=== PATIENT | male | born 1990 | race Caucasian/White ===

== ENCOUNTER 2019-11-15 13:22 | Inpatient (IN) | payer MEDICAID, OTHER ==
[~2019-11-15] VITALS: Ht 172.7 cm; Wt 97.3 kg
[~2019-11-15 13:22] MED LIST: BENZ1TAB70 PO; DIVA-78 PO; HALOD100I IM; PREDNISONE; RISP1TAB27 PO
[2019-11-15] MEDS ORDERED: ACETAMINOPHEN 325 MG TABLET PO ONE (17:00)
[2019-11-15 17:09] LABS: AMPHET/METH SCREEN,URINE NEGATIVE (NEGATIVE); BARBITURATE SCREEN, URINE NEGATIVE (NEGATIVE); BENZODIAZEPINES SCREEN,URINE NEGATIVE (NEGATIVE); CANNABINOID SCREEN,URINE NEGATIVE (NEGATIVE); COCAINE SCREEN,URINE NEGATIVE (NEGATIVE); METHADONE SCREEN, URINE NEGATIVE (NEGATIVE); OPIATE SCREEN,URINE NEGATIVE (NEGATIVE)
[2019-11-15 17:11] LABS: PHENCYCLIDINE SCREEN,URINE NEGATIVE (NEGATIVE)
[2019-11-15 17:48] LABS: BASOPHILS % (AUTO) 0.6 % (0.0-2.0); EOSINOPHILS % (AUTO) 1.8 % (1.0-6.0); HEMATOCRIT 45.2 % (41-53); HEMOGLOBIN 14.8 g/dL (13.5-17.5); LYMPHOCYTES # (AUTO) 2.3 K/uL (1.0-4.8); LYMPHOCYTES % (AUTO) 30.1 % (22.0-44.0); MEAN CORPUSCULAR HEMOGLOBIN 30.9 pg (26.0-34.0); MEAN CORPUSCULAR HGB CONC 32.8 G/dL (31.0-37.0); MEAN CORPUSCULAR VOLUME 94 fL (80-100); MONOCYTES # (AUTO) 0.6 K/uL (0.1-1.0); MONOCYTES % (AUTO) 8.6 % (2.0-9.0); NEUTROPHILS # (AUTO) 4.4 K/uL (1.8-7.7); NEUTROPHILS % (AUTO) 58.9 % (40.0-70.0); PLATELET COUNT (AUTO) 217 K/uL (150-450); RED BLOOD CELL COUNT(AUTO) 4.79 MIL/uL (4.50-5.90); RED CELL DISTRIBUTION WIDTH 13.2 % (11.5-14.5)
[2019-11-15 18:07] LABS: ANION GAP 2 mmol/L (8-16); CALCIUM, TOTAL 9.4 mg/dL (8.8-10.5); CARBON DIOXIDE 31 mmol/L (22-29); CHLORIDE 100 mmol/L (98-107); CREATININE 1.01 mg/dL (0.60-1.30); GLOMERULAR FILTR. RATE CALC > 60 mL/min (>60); GLUCOSE,RANDOM 124 mg/dL (70-110); POTASSIUM 4.2 mmol/L (3.5-5.1); SODIUM SERUM 133 mmol/L (136-145); UREA NITROGEN, BLOOD 12 mg/dL (7-18)
[2019-11-15 18:13] LABS: ALANINE AMINOTRANSFERASE 50 U/L (12-78); ALBUMIN 4.2 g/dL (3.4-5.0); ALKALINE PHOSPHATASE 57 U/L (46-116); ASPARTATE AMINOTRANSFERASE 99 U/L (15-37); BILIRUBIN,TOTAL 0.4 mg/dL (0.1-1.0); TOTAL PROTEIN, SERUM 7.9 g/dL (6.4-8.2)
[2019-11-15 18:31] LABS: VALPROIC ACID < 3 mcg/mL (50-100)
[2019-11-15] MEDS: DIVALPROEX SODIUM 500 MG DR TABLET PO SCH ×2 (21:00→21:17)
[2019-11-15] MEDS: RisperiDONE 1 MG TABLET PO SCH (21:00)
[2019-11-15] MEDS ORDERED: DIVALPROEX SODIUM 500 MG DR TABLET PO SCH (21:00)
[2019-11-15] MEDS ORDERED: LORazepam 2 MG/ML VIAL ONE (22:24)
[2019-11-15] MEDS ORDERED: DiphenhydrAMINE HCL 50 MG/ML VIAL ONE (22:24)
[2019-11-15] MEDS ORDERED: HALOPERIDOL LACTATE 5 MG/ML VIAL ONE (22:24)
[2019-11-15] MEDS ORDERED: HALOPERIDOL LACTATE 5 MG/ML VIAL IM ONE (22:30)
[2019-11-15] MEDS ORDERED: LORazepam 2 MG/ML VIAL IM ONE (22:30)
[2019-11-15] MEDS ORDERED: DiphenhydrAMINE HCL 50 MG/ML VIAL IM ONE (22:30)
[2019-11-15] MEDS ORDERED: ChlorproMAZINE HCL 25 MG/ML 2 ML AMP IM ONE (23:15)
[2019-11-16 08:36] VITALS: BP 122/85
[2019-11-16] MEDS: RisperiDONE 1 MG TABLET PO SCH ×2 (09:00→10:49)
[2019-11-16] MEDS: HALOPERIDOL 5 MG TABLET PO PRN ×3 (10:48→18:47)
[2019-11-16 10:49] VITALS: BP 122/85
[2019-11-16] MEDS: LORazepam 2 MG TABLET PO PRN ×3 (10:49→18:47)
[2019-11-16] MEDS: IBUPROFEN 400 MG TABLET PO PRN ×2 (10:49→19:12)
[2019-11-16] MEDS ORDERED: MAGNESIUM HYDROXIDE SUSPENSION 30 ML UDCUP PO PRN (12:30)
[2019-11-16] MEDS ORDERED: PETROLATUM,WHITE 28 GM JELLY TP PRN (12:30)
[2019-11-16] MEDS ORDERED: MAG HYDROX/AL HYDROX/SIMETH ES 30 ML SUSPENSION UDCUP PO PRN (12:30)
[2019-11-16] MEDS ORDERED: IBUPROFEN 400 MG TABLET PO PRN (12:30)
[2019-11-16] MEDS ORDERED: NICOTINE 14 MG/24 HOUR PATCH TD PRN (12:30)
[2019-11-16] MEDS ORDERED: ALBUTEROL SULFATE HFA 90 MCG/PUFF 8 GM INHALER IH PRN (12:30)
[2019-11-16] MEDS ORDERED: DOCUSATE SODIUM 100 MG CAPSULE PO PRN (12:30)
[2019-11-16] MEDS ORDERED: CloNIDine HCL 0.1 MG TABLET PO PRN (12:30)
[2019-11-16] MEDS ORDERED: ONDANSETRON HCL 4 MG TABLET PO PRN (12:30)
[2019-11-16] MEDS ORDERED: GuaiFENesin/D-METHORPHAN [SUGAR-FREE] 200-20MG/10 ML SYRUP UDCUP PO PRN (12:30)
[2019-11-16] MEDS ORDERED: LOPERAMIDE HCL 2 MG CAPSULE PO PRN (12:30)
[2019-11-16] MEDS ORDERED: HALOPERIDOL LACTATE 5 MG/ML VIAL ONE (13:25)
[2019-11-16] MEDS ORDERED: LORazepam 2 MG/ML VIAL ONE (13:25)
[2019-11-16] MEDS ORDERED: DiphenhydrAMINE HCL 50 MG/ML VIAL ONE (13:26)
[2019-11-16] MEDS ORDERED: DiphenhydrAMINE HCL 50 MG/ML VIAL IM ONE (13:30)
[2019-11-16] MEDS ORDERED: LORazepam 2 MG/ML VIAL IM ONE (13:30)
[2019-11-16] MEDS ORDERED: HALOPERIDOL LACTATE 5 MG/ML VIAL IM ONE (13:30)
[2019-11-16] MEDS ORDERED: ChlorproMAZINE HCL 25 MG/ML 2 ML AMP ONE (13:41)
[2019-11-16] MEDS: CloZAPine 25 MG TABLET PO SCH (16:38)
[2019-11-16 19:14] VITALS: BP 128/78
[2019-11-17] MEDS: LORazepam 2 MG TABLET PO PRN ×3 (06:39→16:56)
[2019-11-17] MEDS: HALOPERIDOL 5 MG TABLET PO PRN ×3 (06:39→16:55)
[2019-11-17] MEDS: CloZAPine 25 MG TABLET PO SCH ×2 (08:22→16:56)
[2019-11-17 08:27] VITALS: BP 127/81
[2019-11-17] MEDS: IBUPROFEN 400 MG TABLET PO PRN ×2 (10:33→20:23)
[2019-11-17 16:35] VITALS: BP 131/81
[2019-11-17] MEDS: ZOLPIDEM TARTRATE 10 MG TABLET PO PRN (20:03)
[2019-11-17 20:23] VITALS: BP 129/78
[2019-11-18 06:00] VITALS: BP 119/84
[2019-11-18] MEDS: IBUPROFEN 400 MG TABLET PO PRN ×2 (06:01→12:05)
[2019-11-18] MEDS: CloZAPine 25 MG TABLET PO SCH ×2 (08:03→16:16)
[2019-11-18] MEDS: LORazepam 2 MG TABLET PO PRN ×2 (08:04→16:16)
[2019-11-18] MEDS: HALOPERIDOL 5 MG TABLET PO PRN ×2 (08:04→16:16)
[2019-11-18] MEDS ORDERED: HALOPERIDOL LACTATE 5 MG/ML VIAL ONE (11:12)
[2019-11-18] MEDS ORDERED: LORazepam 2 MG/ML VIAL ONE (11:12)
[2019-11-18] MEDS ORDERED: DiphenhydrAMINE HCL 50 MG/ML VIAL ONE (11:12)
[2019-11-18] MEDS ORDERED: DiphenhydrAMINE HCL 50 MG/ML VIAL IM ONE (11:15)
[2019-11-18] MEDS ORDERED: HALOPERIDOL LACTATE 5 MG/ML VIAL IM ONE (11:15)
[2019-11-18] MEDS ORDERED: LORazepam 2 MG/ML VIAL IM ONE (11:15)
[2019-11-18 12:05] VITALS: BP 129/73
[2019-11-18 13:39] VITALS: BP 142/82
[2019-11-18] MEDS: ACETAMINOPHEN 325 MG TABLET PO PRN (13:39)
[2019-11-18 16:13] VITALS: BP 146/87
[2019-11-18] MEDS: ZOLPIDEM TARTRATE 10 MG TABLET PO PRN (20:58)
[2019-11-19] MEDS: HALOPERIDOL 5 MG TABLET PO PRN ×2 (07:25→17:48)
[2019-11-19] MEDS: CloZAPine 25 MG TABLET PO SCH ×2 (07:26→17:48)
[2019-11-19] MEDS: LORazepam 2 MG TABLET PO PRN ×2 (07:26→17:48)
[2019-11-19] MEDS: IBUPROFEN 400 MG TABLET PO PRN (08:05)
[2019-11-19 08:06] VITALS: BP 153/87
[2019-11-19] MEDS ORDERED: LORazepam 2 MG/ML VIAL ONE (08:25)
[2019-11-19] MEDS ORDERED: DiphenhydrAMINE HCL 50 MG/ML VIAL ONE (08:26)
[2019-11-19] MEDS ORDERED: HALOPERIDOL LACTATE 5 MG/ML VIAL ONE (08:26)
[2019-11-19] MEDS ORDERED: DiphenhydrAMINE HCL 50 MG/ML VIAL IM ONE (08:30)
[2019-11-19] MEDS ORDERED: LORazepam 2 MG/ML VIAL IM ONE (08:30)
[2019-11-19] MEDS ORDERED: HALOPERIDOL LACTATE 5 MG/ML VIAL IM ONE (08:30)
[2019-11-19 16:30] VITALS: BP 111/71
[2019-11-20] MEDS: LORazepam 2 MG TABLET PO PRN ×3 (04:39→08:51)
[2019-11-20] MEDS: ACETAMINOPHEN 325 MG TABLET PO PRN (04:40)
[2019-11-20] MEDS: HALOPERIDOL 5 MG TABLET PO PRN ×3 (04:40→08:51)
[2019-11-20 04:41] VITALS: BP 137/64
[2019-11-20] MEDS: CloZAPine 25 MG TABLET PO SCH ×2 (07:19→17:43)
[2019-11-20 08:35] VITALS: BP 149/76
[2019-11-20] MEDS ORDERED: DiphenhydrAMINE HCL 50 MG/ML VIAL ONE (12:34)
[2019-11-20] MEDS ORDERED: HALOPERIDOL LACTATE 5 MG/ML VIAL ONE (12:34)
[2019-11-20] MEDS ORDERED: LORazepam 2 MG/ML VIAL ONE (12:34)
[2019-11-20] MEDS ORDERED: LORazepam 2 MG/ML VIAL IM ONE (13:00)
[2019-11-20] MEDS ORDERED: HALOPERIDOL LACTATE 5 MG/ML VIAL IM ONE (13:00)
[2019-11-20] MEDS ORDERED: DiphenhydrAMINE HCL 50 MG/ML VIAL IM ONE (13:00)
[2019-11-20 18:29] VITALS: BP 110/58
[2019-11-20] MEDS: ZOLPIDEM TARTRATE 10 MG TABLET PO PRN (20:20)
[2019-11-21] MEDS: LORazepam 2 MG TABLET PO PRN ×2 (06:08→10:09)
[2019-11-21] MEDS: HALOPERIDOL 5 MG TABLET PO PRN ×2 (06:08→10:09)
[2019-11-21] MEDS: CloZAPine 25 MG TABLET PO SCH ×2 (07:35→16:07)
[2019-11-21 10:19] VITALS: BP 126/77
[2019-11-21] MEDS: IBUPROFEN 400 MG TABLET PO PRN (10:19)
[2019-11-21] MEDS ORDERED: LORazepam 2 MG/ML VIAL IM ONE (13:30)
[2019-11-21] MEDS ORDERED: DiphenhydrAMINE HCL 50 MG/ML VIAL IM ONE (13:30)
[2019-11-21] MEDS ORDERED: HALOPERIDOL LACTATE 5 MG/ML VIAL IM ONE (13:30)
[2019-11-21 16:00] VITALS: BP 139/87
[2019-11-21] MEDS: THIAMINE 100 MG TABLET PO SCH (16:22)
[2019-11-21] MEDS: ZOLPIDEM TARTRATE 10 MG TABLET PO PRN (21:50)
[2019-11-22 08:46] VITALS: BP 124/88
[2019-11-22] MEDS: THIAMINE 100 MG TABLET PO SCH ×2 (12:28→16:13)
[2019-11-22] MEDS: CloZAPine 25 MG TABLET PO SCH ×2 (12:28→16:13)
[2019-11-22] MEDS: HALOPERIDOL 5 MG TABLET PO PRN ×2 (12:41→17:16)
[2019-11-22] MEDS: LORazepam 2 MG TABLET PO PRN ×2 (12:41→17:16)
[2019-11-22] MEDS: IBUPROFEN 400 MG TABLET PO PRN (14:11)
[2019-11-22 16:30] VITALS: BP 149/92
[2019-11-22] MEDS: ZOLPIDEM TARTRATE 10 MG TABLET PO PRN (20:01)
[2019-11-23] MEDS: LORazepam 2 MG TABLET PO PRN ×4 (00:22→19:31)
[2019-11-23] MEDS: HALOPERIDOL 5 MG TABLET PO PRN ×4 (00:22→19:31)
[2019-11-23 07:33] LABS: BASOPHILS % (AUTO) 0.5 % (0.0-2.0); EOSINOPHILS % (AUTO) 2.1 % (1.0-6.0); HEMATOCRIT 44.8 % (41-53); LYMPHOCYTES # (AUTO) 1.8 K/uL (1.0-4.8); LYMPHOCYTES % (AUTO) 37.3 % (22.0-44.0); MEAN CORPUSCULAR HEMOGLOBIN 31.4 pg (26.0-34.0); MEAN CORPUSCULAR HGB CONC 33.5 G/dL (31.0-37.0); MEAN CORPUSCULAR VOLUME 94 fL (80-100); MONOCYTES # (AUTO) 0.5 K/uL (0.1-1.0); MONOCYTES % (AUTO) 10.6 % (2.0-9.0); NEUTROPHILS # (AUTO) 2.4 K/uL (1.8-7.7); NEUTROPHILS % (AUTO) 49.5 % (40.0-70.0); PLATELET COUNT (AUTO) 241 K/uL (150-450); RED BLOOD CELL COUNT(AUTO) 4.79 MIL/uL (4.50-5.90); RED CELL DISTRIBUTION WIDTH 12.8 % (11.5-14.5)
[2019-11-23] MEDS: CloZAPine 25 MG TABLET PO SCH ×2 (08:34→17:22)
[2019-11-23] MEDS: THIAMINE 100 MG TABLET PO SCH ×2 (08:35→17:22)
[2019-11-24] MEDS: HALOPERIDOL 5 MG TABLET PO PRN ×2 (08:46→12:59)
[2019-11-24] MEDS: LORazepam 2 MG TABLET PO PRN ×2 (08:46→12:59)
[2019-11-24] MEDS: CloZAPine 25 MG TABLET PO SCH ×2 (08:46→17:06)
[2019-11-24] MEDS: THIAMINE 100 MG TABLET PO SCH ×2 (08:47→17:06)
[2019-11-24] MEDS: IBUPROFEN 400 MG TABLET PO PRN (12:59)
[2019-11-25 08:17] VITALS: BP 111/70
[2019-11-25] MEDS: THIAMINE 100 MG TABLET PO SCH (08:17)
[2019-11-25] MEDS: CloZAPine 25 MG TABLET PO SCH (08:17)
[2019-11-25] MEDS ORDERED: CLOZ100T32 PO (08:40)
[2019-11-25] MEDS: IBUPROFEN 400 MG TABLET PO PRN (10:03)
== END 2019-11-25 14:15 | disposition home or self-care (01) | DRG 885 ==
LOC: EMS 13:25 → 3EC 19:30
PROVIDERS: ADMIT Psychiatry & Neurology Child & Adolescent Psychiatry; ATTEND Psychiatry & Neurology Child & Adolescent Psychiatry
DX: F25.0 Schizoaffective disorder, bipolar type (principal); R45.851 Suicidal ideations; E87.1 Hypo-osmolality and hyponatremia; G51.0 Bell's palsy; F17.210 Nicotine dependence, cigarettes, uncomplicated; R74.0 Nonspecific elevation of levels of transaminase and lactic acid dehydrogenase [LDH]; J30.2 Other seasonal allergic rhinitis; R03.0 Elevated blood-pressure reading, without diagnosis of hypertension; F15.90 Other stimulant use, unspecified, uncomplicated
CPT/HCPCS: G0480; J1200; J1630; J2060; J3230

== ENCOUNTER 2019-12-30 09:34 | Inpatient (IN) | payer MEDICAID, OTHER ==
[~2019-12-30] VITALS: Ht 180.3 cm; Wt 91.2 kg
[~2019-12-30 09:34] MED LIST changes: -BENZ1TAB70 PO; +CLOZ100T32 PO; -DIVA-78 PO; -HALOD100I IM; -PREDNISONE; -RISP1TAB27 PO
[2019-12-30 11:29] LABS: BASOPHILS % (AUTO) 0.6 % (0.0-2.0); EOSINOPHILS % (AUTO) 1.3 % (1.0-6.0); HEMATOCRIT 45.6 % (41-53); LYMPHOCYTES # (AUTO) 1.8 K/uL (1.0-4.8); LYMPHOCYTES % (AUTO) 20.5 % (22.0-44.0); MEAN CORPUSCULAR HEMOGLOBIN 31.2 pg (26.0-34.0); MEAN CORPUSCULAR HGB CONC 32.8 G/dL (31.0-37.0); MEAN CORPUSCULAR VOLUME 95 fL (80-100); MONOCYTES % (AUTO) 11.7 % (2.0-9.0); NEUTROPHILS # (AUTO) 5.7 K/uL (1.8-7.7); NEUTROPHILS % (AUTO) 65.9 % (40.0-70.0); PLATELET COUNT (AUTO) 199 K/uL (150-450); RED BLOOD CELL COUNT(AUTO) 4.79 MIL/uL (4.50-5.90); RED CELL DISTRIBUTION WIDTH 13.4 % (11.5-14.5)
[2019-12-30 11:55] LABS: ANION GAP 6 mmol/L (8-16); CALCIUM, TOTAL 8.8 mg/dL (8.8-10.5); CARBON DIOXIDE 29 mmol/L (22-29); CHLORIDE 103 mmol/L (98-107); GLOMERULAR FILTR. RATE CALC > 60 mL/min (>60); GLUCOSE,RANDOM 89 mg/dL (70-110); POTASSIUM 3.3 mmol/L (3.5-5.1); SODIUM SERUM 138 mmol/L (136-145); UREA NITROGEN, BLOOD 25 mg/dL (7-18)
[2019-12-30 12:00] LABS: ACETAMINOPHEN 3 mcg/mL (10-30); ALANINE AMINOTRANSFERASE 29 U/L (12-78); ALBUMIN 4.1 g/dL (3.4-5.0); ALKALINE PHOSPHATASE 52 U/L (46-116); ASPARTATE AMINOTRANSFERASE 32 U/L (15-37); BILIRUBIN,TOTAL 1.8 mg/dL (0.1-1.0); SALICYLATE 0.5 mg/dL (2.8-20.0); TOTAL PROTEIN, SERUM 7.9 g/dL (6.4-8.2)
[2019-12-30] MEDS ORDERED: SODIUM CHLORIDE 0.9% 1,000 ML IV ONE (12:30)
[2019-12-30 13:40] LABS: LITHIUM < 0.20 mmol/L (0.60-1.20)
[2019-12-30 13:55] LABS: VALPROIC ACID < 3 mcg/mL (50-100)
[2019-12-30 17:28] LABS: ANION GAP 3 mmol/L (8-16); CALCIUM, TOTAL 8.3 mg/dL (8.8-10.5); CARBON DIOXIDE 31 mmol/L (22-29); CHLORIDE 105 mmol/L (98-107); CREATININE 1.11 mg/dL (0.60-1.30); GLOMERULAR FILTR. RATE CALC > 60 mL/min (>60); GLUCOSE,RANDOM 75 mg/dL (70-110); SODIUM SERUM 139 mmol/L (136-145); UREA NITROGEN, BLOOD 21 mg/dL (7-18)
[2019-12-30 17:33] LABS: ALANINE AMINOTRANSFERASE 26 U/L (12-78); ALBUMIN 3.7 g/dL (3.4-5.0); ALKALINE PHOSPHATASE 49 U/L (46-116); ASPARTATE AMINOTRANSFERASE 34 U/L (15-37); BILIRUBIN,TOTAL 1.7 mg/dL (0.1-1.0); TOTAL PROTEIN, SERUM 7.3 g/dL (6.4-8.2)
[2019-12-30 17:43] LABS: ACETAMINOPHEN < 2 mcg/mL (10-30)
[2019-12-30] MEDS ORDERED: DiphenhydrAMINE HCL 50 MG/ML VIAL IM ONE (18:45)
[2019-12-30] MEDS ORDERED: LORazepam 2 MG/ML VIAL IM ONE (18:45)
[2019-12-30] MEDS ORDERED: HALOPERIDOL LACTATE 5 MG/ML VIAL IM ONE (18:45)
[2019-12-30 20:20] LABS: GLUCOSE,POINT OF CARE 69 MG/DL (70-110)
[2019-12-30] MEDS ORDERED: DEXTROSE 50%-WATER 25 GM/50 ML SYRINGE IVP ONE (20:30)
[2019-12-30 21:48] LABS: GLUCOSE,POINT OF CARE 98 MG/DL (70-110)
[2019-12-30] MEDS ORDERED: ALBUTEROL SULFATE HFA 90 MCG/PUFF 8 GM INHALER IH PRN (23:45)
[2019-12-30] MEDS ORDERED: NICOTINE 14 MG/24 HOUR PATCH TD PRN (23:45)
[2019-12-30] MEDS ORDERED: CloNIDine HCL 0.1 MG TABLET PO PRN (23:45)
[2019-12-30] MEDS ORDERED: PETROLATUM,WHITE 28 GM JELLY TP PRN (23:45)
[2019-12-30] MEDS ORDERED: MAG HYDROX/AL HYDROX/SIMETH ES 30 ML SUSPENSION UDCUP PO PRN (23:45)
[2019-12-30] MEDS ORDERED: ONDANSETRON HCL 4 MG TABLET PO PRN (23:45)
[2019-12-30] MEDS ORDERED: DOCUSATE SODIUM 100 MG CAPSULE PO PRN (23:45)
[2019-12-30] MEDS ORDERED: MAGNESIUM HYDROXIDE SUSPENSION 30 ML UDCUP PO PRN (23:45)
[2019-12-30] MEDS ORDERED: LOPERAMIDE HCL 2 MG CAPSULE PO PRN (23:45)
[2019-12-30] MEDS ORDERED: ACETAMINOPHEN 325 MG TABLET PO PRN (23:45)
[2019-12-31 01:58] VITALS: BP 104/62
[2019-12-31] MEDS: LORazepam 2 MG TABLET PO PRN ×2 (12:23→17:35)
[2019-12-31] MEDS: HALOPERIDOL 5 MG TABLET PO PRN (12:23)
[2019-12-31] MEDS: IBUPROFEN 400 MG TABLET PO PRN (12:45)
[2019-12-31] MEDS ORDERED: CLOZ25TA5 PO (14:10)
[2019-12-31 16:20] VITALS: BP 113/76
[2019-12-31] MEDS: CloZAPine 25 MG TABLET PO SCH (16:36)
[2019-12-31] MEDS: BENZOCAINE/MENTHOL LOZENGE PO PRN (18:15)
[2020-01-01] MEDS: BENZOCAINE/MENTHOL LOZENGE PO PRN ×2 (03:53→16:51)
[2020-01-01 08:24] VITALS: BP 117/77
[2020-01-01] MEDS: CloZAPine 25 MG TABLET PO SCH ×2 (08:35→16:51)
[2020-01-01] MEDS: LORazepam 2 MG TABLET PO PRN ×2 (08:35→16:51)
[2020-01-01 16:15] VITALS: BP 134/83
[2020-01-01] MEDS: GuaiFENesin/D-METHORPHAN [SUGAR-FREE] 200-20MG/10 ML SYRUP UDCUP PO PRN (19:52)
[2020-01-02] MEDS: GuaiFENesin/D-METHORPHAN [SUGAR-FREE] 200-20MG/10 ML SYRUP UDCUP PO PRN (03:23)
[2020-01-02 07:55] LABS: BASOPHILS % (AUTO) 0.2 % (0.0-2.0); EOSINOPHILS % (AUTO) 3.6 % (1.0-6.0); HEMATOCRIT 39.9 % (41-53); HEMOGLOBIN 13.6 g/dL (13.5-17.5); LYMPHOCYTES # (AUTO) 1.5 K/uL (1.0-4.8); LYMPHOCYTES % (AUTO) 35.2 % (22.0-44.0); MEAN CORPUSCULAR HEMOGLOBIN 32.6 pg (26.0-34.0); MEAN CORPUSCULAR HGB CONC 34.2 G/dL (31.0-37.0); MEAN CORPUSCULAR VOLUME 95 fL (80-100); MONOCYTES # (AUTO) 0.5 K/uL (0.1-1.0); MONOCYTES % (AUTO) 10.7 % (2.0-9.0); NEUTROPHILS # (AUTO) 2.2 K/uL (1.8-7.7); NEUTROPHILS % (AUTO) 50.3 % (40.0-70.0); PLATELET COUNT (AUTO) 181 K/uL (150-450); RED BLOOD CELL COUNT(AUTO) 4.18 MIL/uL (4.50-5.90); RED CELL DISTRIBUTION WIDTH 13.6 % (11.5-14.5)
[2020-01-02 08:12] VITALS: BP 144/90
[2020-01-02] MEDS: CloZAPine 25 MG TABLET PO SCH ×2 (08:14→16:13)
[2020-01-02] MEDS: LORazepam 2 MG TABLET PO PRN ×2 (08:14→16:13)
[2020-01-02 08:17] LABS: ALANINE AMINOTRANSFERASE 24 U/L (12-78); ALBUMIN 3.1 g/dL (3.4-5.0); ALKALINE PHOSPHATASE 48 U/L (46-116); ANION GAP 2 mmol/L (8-16); ASPARTATE AMINOTRANSFERASE 29 U/L (15-37); BILIRUBIN,TOTAL 0.3 mg/dL (0.1-1.0); CALCIUM, TOTAL 8.2 mg/dL (8.8-10.5); CARBON DIOXIDE 27 mmol/L (22-29); CHLORIDE 109 mmol/L (98-107); CHOL/HDL RATIO 2.6 (4.2-7.3); CHOLESTEROL 111 mg/dL (131-200); CREATININE 0.78 mg/dL (0.60-1.30); FREE T4 (FREE THYROXINE) 1.11 ng/dL (0.76-1.46); GLOMERULAR FILTR. RATE CALC > 60 mL/min (>60); GLUCOSE,RANDOM 94 mg/dL (70-110); HDL CHOLESTEROL 43 mg/dL (40-60); LDL CHOL (CALC.) 60 mg/dL (0-130); POTASSIUM 4.2 mmol/L (3.5-5.1); SODIUM SERUM 138 mmol/L (136-145); THYROID STIMULATING HORMONE 0.61 uIU/mL (0.36-3.74); TOTAL PROTEIN, SERUM 6.2 g/dL (6.4-8.2); TRIGLYCERIDES 39 mg/dL (15-150); UREA NITROGEN, BLOOD 13 mg/dL (7-18)
[2020-01-02 16:23] VITALS: BP 136/87
[2020-01-03 06:30] VITALS: BP 123/78
[2020-01-03] MEDS: HALOPERIDOL 5 MG TABLET PO PRN ×2 (08:11→15:59)
[2020-01-03] MEDS: LORazepam 2 MG TABLET PO PRN ×2 (08:11→15:59)
[2020-01-03 08:34] VITALS: BP 131/76
[2020-01-03] MEDS: CloZAPine 25 MG TABLET PO SCH ×2 (09:00→16:00)
[2020-01-03] MEDS: IBUPROFEN 400 MG TABLET PO PRN (10:03)
[2020-01-03] MEDS ORDERED: ChlorproMAZINE HCL 25 MG/ML 2 ML AMP ONE (10:50)
[2020-01-03] MEDS ORDERED: DiphenhydrAMINE HCL 50 MG/ML VIAL IM ONE (11:00)
[2020-01-03] MEDS ORDERED: ChlorproMAZINE HCL 25 MG/ML 2 ML AMP IM ONE (11:00)
[2020-01-03 16:08] VITALS: BP 116/62
[2020-01-04 06:06] VITALS: BP 116/73
[2020-01-04] MEDS ORDERED: DiphenhydrAMINE HCL 50 MG/ML VIAL ONE (08:07)
[2020-01-04] MEDS ORDERED: HALOPERIDOL LACTATE 5 MG/ML VIAL ONE (08:07)
[2020-01-04] MEDS ORDERED: LORazepam 2 MG/ML VIAL ONE (08:09)
[2020-01-04] MEDS: CloZAPine 25 MG TABLET PO SCH ×2 (08:10→16:27)
[2020-01-04] MEDS ORDERED: HALOPERIDOL LACTATE 5 MG/ML VIAL IM ONE (08:15)
[2020-01-04] MEDS ORDERED: DiphenhydrAMINE HCL 50 MG/ML VIAL IM ONE (08:15)
[2020-01-04] MEDS ORDERED: LORazepam 2 MG/ML VIAL IM ONE (08:15)
[2020-01-04 09:44] VITALS: BP 135/73
[2020-01-04 16:10] VITALS: BP 117/75
[2020-01-04] MEDS: ZOLPIDEM TARTRATE 10 MG TABLET PO PRN (21:40)
[2020-01-05 04:22] VITALS: BP 126/77
[2020-01-05 08:07] VITALS: BP 123/70
[2020-01-05] MEDS: CloZAPine 25 MG TABLET PO SCH ×2 (09:02→16:22)
[2020-01-05 16:08] VITALS: BP 134/83
[2020-01-05] MEDS: IBUPROFEN 400 MG TABLET PO PRN (17:19)
[2020-01-05] MEDS: LORazepam 2 MG TABLET PO PRN (20:53)
[2020-01-05] MEDS: ZOLPIDEM TARTRATE 10 MG TABLET PO PRN (21:23)
[2020-01-05] MEDS: HALOPERIDOL 5 MG TABLET PO PRN (21:23)
[2020-01-05 21:26] VITALS: BP 147/70
[2020-01-06 01:57] VITALS: BP 130/83
[2020-01-06 08:09] VITALS: BP 136/78
[2020-01-06] MEDS: CloZAPine 25 MG TABLET PO SCH ×2 (08:24→16:24)
[2020-01-06] MEDS: LORazepam 2 MG TABLET PO PRN ×2 (08:25→15:56)
[2020-01-06] MEDS: HALOPERIDOL 5 MG TABLET PO PRN ×2 (08:25→15:56)
[2020-01-06 16:09] VITALS: BP 128/72
[2020-01-07 06:36] VITALS: BP 132/75
[2020-01-07] MEDS: CloZAPine 25 MG TABLET PO SCH ×2 (08:21→16:02)
[2020-01-07 08:26] VITALS: BP 138/79
[2020-01-07] MEDS: CEPHALEXIN MONOHYDRATE 500 MG CAPSULE PO SCH ×3 (09:00→16:02)
[2020-01-07] MEDS: SULFAMETHOX/TRIMETH DS 800-160 MG/TABLET PO SCH ×2 (09:00→16:02)
[2020-01-07] MEDS: LORazepam 2 MG TABLET PO PRN (16:02)
[2020-01-07] MEDS: HALOPERIDOL 5 MG TABLET PO PRN (16:03)
[2020-01-07 16:08] VITALS: BP 132/76
[2020-01-08 04:35] VITALS: BP 124/71
[2020-01-08] MEDS ORDERED: LORazepam 2 MG/ML VIAL ONE (06:29)
[2020-01-08] MEDS ORDERED: LORazepam 2 MG/ML VIAL IM ONE (06:30)
[2020-01-08] MEDS ORDERED: HALOPERIDOL LACTATE 5 MG/ML VIAL ONE (06:30)
[2020-01-08] MEDS ORDERED: DiphenhydrAMINE HCL 50 MG/ML VIAL ONE (06:30)
[2020-01-08] MEDS ORDERED: HALOPERIDOL LACTATE 5 MG/ML VIAL IM ONE (06:30)
[2020-01-08] MEDS ORDERED: DiphenhydrAMINE HCL 50 MG/ML VIAL IM ONE (06:30)
[2020-01-08 08:39] VITALS: BP 110/75
[2020-01-08] MEDS: SULFAMETHOX/TRIMETH DS 800-160 MG/TABLET PO SCH (08:43)
[2020-01-08] MEDS: CloZAPine 25 MG TABLET PO SCH (08:43)
[2020-01-08] MEDS: CEPHALEXIN MONOHYDRATE 500 MG CAPSULE PO SCH (08:44)
[2020-01-08] MEDS ORDERED: CEPH-582 PO ×3 (10:06→10:09)
[2020-01-08] MEDS ORDERED: SULF1TAB42 PO ×3 (10:06→10:09)
== END 2020-01-08 15:00 | disposition left against medical advice (07) | DRG 885 ==
LOC: EMS 09:38 → B3A 12-31 02:08
PROVIDERS: ADMIT Psychiatry & Neurology Child & Adolescent Psychiatry; ATTEND Psychiatry & Neurology Child & Adolescent Psychiatry
DX: F20.0 Paranoid schizophrenia (principal); F41.9 Anxiety disorder, unspecified; Z91.19 Patient's noncompliance with other medical treatment and regimen; G51.0 Bell's palsy; F19.10 Other psychoactive substance abuse, uncomplicated; F17.200 Nicotine dependence, unspecified, uncomplicated; E87.6 Hypokalemia; R74.0 Nonspecific elevation of levels of transaminase and lactic acid dehydrogenase [LDH]; I95.9 Hypotension, unspecified; D72.819 Decreased white blood cell count, unspecified; Z59.0 Homelessness
CPT/HCPCS: 83036; 83735; 84439; 84443; 93005; G0480; G0481; J1200; J1630; J2060; J3230